=== PATIENT | female | born 1975 | race Caucasian/White ===

== ENCOUNTER → 2016-11-11 | Outpatient (CLI) | payer BC | LOC: MC.RAD 07:00 | DX: Z12.31 Encounter for screening mammogram for malignant neoplasm of breast (principal) ==

== ENCOUNTER 2018-02-05 16:00 | Outpatient (RCR) | payer BC | END 2018-02-15 | disposition home or self-care (01) | LOC: WSC | DX: M23.8X1 Other internal derangements of right knee (principal); Y93.02 Activity, running ==

== ENCOUNTER 2018-03-22 15:56 | Outpatient (RCR) | payer BC | END 2018-03-22 16:41 | disposition home or self-care (01) | LOC: WSC 15:56 | DX: M23.91 Unspecified internal derangement of right knee (principal) ==

== ENCOUNTER → 2018-07-06 | Outpatient (CLI) | payer BC | LOC: MC.RAD 06:59 | DX: Z12.31 Encounter for screening mammogram for malignant neoplasm of breast (principal); Z80.3 Family history of malignant neoplasm of breast ==

== ENCOUNTER → 2020-04-10 | Outpatient (CLI) | payer BC | LOC: MC.RAD 07:14 | DX: Z12.31 Encounter for screening mammogram for malignant neoplasm of breast (principal) ==

== ENCOUNTER → 2021-05-03 | Outpatient (CLI) | payer BC | LOC: MC.RAD 07:20 | DX: Z12.31 Encounter for screening mammogram for malignant neoplasm of breast (principal) ==